=== PATIENT | male | born 1935 | race African-American/Black ===

== ENCOUNTER 2017-04-13 10:22 | Emergency (ER) | payer MEDICARE ==
[~2017-04-13] VITALS: Ht 180.3 cm; Wt 74.0 kg
[2017-04-13 10:25] VITALS: BP 136/87; PULSE 62; RESP 16; TEMP 97.8; O2SAT 98
[2017-04-13] MEDS ORDERED: SODIUM CHLOR 0.9% 1000 ML INJ 1,000 ML IV SCH (10:46)
[2017-04-13 10:49] VITALS: RESP 16; O2SAT 98
[2017-04-13 10:51] VITALS: BP 147/80; PULSE 59; RESP 16; O2SAT 98
--- NOTE | 2017-04-13 10:51 | PD ---
HPI Chief Complaint: Bleeding Time Seen by Provider: 10:35 Travel History International Travel<30 days: No Contact w/Intl Traveler<30days: No Traveled to known affect area: No History of Present Illness HPI The patient is a 81-year-old [place] male who presents emergency department for blood in his stool. The patient states he has had blood in his stool for approximately one month. He was evaluated in [place], and had an x-ray and blood work at that time, does not know the results. He then moved to local area 2 weeks ago and does not have a local primary physician. The blood in the stool is dark colored, occasionally in a stripe on the stool, and intermittent. He denies any current abdominal pain. He states he had a colonoscopy 3-4 years ago which was negative. He denies taking any blood thinners or anticoagulants. He denies any lightheadedness, dizziness, or shortness of breath with exertion. Symptoms are mild to moderate without any alleviating or exacerbating factors. He denies any pain with defecation. He does have a history of external hemorrhoids. [facility] Past Medical History Narrative Medical Hypertension Past Surgical History Narrative Surgical Left inguinal hernia repair Social History Alcohol Use: Yes (rarely) Tobacco Use: No (quit) Allergies-Medications (Allergen,Severity, Reaction): Coded Allergies: No Known Allergies (Unverified , 04/13/17) Reported Meds & Prescriptions Reported Meds & Active Scripts Active No Active Prescriptions or Reported Medications Review of Systems Except as stated in HPI: all other systems reviewed are Neg General / Constitutional: No: Fever HENT: No: Lightheadedness Cardiovascular: No: Chest Pain or Discomfort, Dyspnea on exertion Respiratory: No: Shortness of Breath Gastrointestinal: Positive: Hematochezia, No: Nausea, Vomiting, Abdominal Pain Musculoskeletal: No: Weakness Physical Exam Narrative GENERAL: Awake, alert, pleasant 81-year-old male who appears his stated age and is in no acute respiratory distress. SKIN: Focused skin assessment warm/dry. HEAD: Atraumatic. Normocephalic. EYES: No conjunctival pallor noted. ENT: No nasal bleeding or discharge. Mucous membranes pink and moist. NECK: Trachea midline. No JVD. CARDIOVASCULAR: Regular rate and rhythm. No murmur appreciated. RESPIRATORY: No accessory muscle use. Clear to auscultation. Breath sounds equal bilaterally. GASTROINTESTINAL: Abdomen soft, non-tender, nondistended. No rebound tenderness. Rectal: No gross blood. Guaiac negative. MUSCULOSKELETAL: No obvious deformities. No clubbing. No cyanosis. No edema. NEUROLOGICAL: Awake and alert. No obvious cranial nerve deficits. Motor grossly within normal limits. Normal speech. PSYCHIATRIC: Appropriate mood and affect; insight and judgment normal. Data Data Last Documented VS Vital Signs Date Time Temp Pulse Resp B/P (MAP) Pulse Ox O2 Delivery O2 Flow Rate FiO2 04/13/17 10:51 58 16 98 Room Air 04/13/17 10:51 147/80 (102) 04/13/17 10:25 97.8 Orders Orders Complete Blood Count With Diff (04/13/17 10:46) Comprehensive Metabolic Panel (04/13/17 10:46) Prothrombin Time / Inr (Pt) (04/13/17 10:46) Act Partial Throm Time (Ptt) (04/13/17 10:46) Ecg Monitoring (04/13/17 10:46) Iv Access Insert/Monitor (04/13/17 10:46) Oximetry (04/13/17 10:46) Sodium Chlor 0.9% 1000 Ml Inj (Ns 1000 M (04/13/17 10:46) Sodium Chloride 0.9% Flush (Ns Flush) (04/13/17 11:00) Famotidine Inj (Pepcid Inj) (04/13/17 11:00) Labs Laboratory Tests Test 04/13/17 10:55 White Blood Count 3.8 TH/MM3 Red Blood Count 4.72 MIL/MM3 Hemoglobin 13.6 GM/DL Hematocrit 41.0 % Mean Corpuscular Volume 86.8 FL Mean Corpuscular Hemoglobin 28.8 PG Mean Corpuscular Hemoglobin Concent 33.2 % Red Cell Distribution Width 15.4 % Platelet Count 265 TH/MM3 Mean Platelet Volume 7.7 FL Neutrophils (%) (Auto) 48.7 % Lymphocytes (%) (Auto) 38.0 % Monocytes (%) (Auto) 9.9 % Eosinophils (%) (Auto) 2.1 % Basophils (%) (Auto) 1.3 % Neutrophils # (Auto) 1.8 TH/MM3 Lymphocytes # (Auto) 1.4 TH/MM3 Monocytes # (Auto) 0.4 TH/MM3 Eosinophils # (Auto) 0.1 TH/MM3 Basophils # (Auto) 0.0 TH/MM3 CBC Comment DIFF FINAL Differential Comment Prothrombin Time 10.7 SEC Prothromb Time International Ratio 1.1 RATIO Activated Partial Thromboplast Time 24.0 SEC Blood Urea Nitrogen 8 MG/DL Creatinine 0.82 MG/DL Random Glucose 92 MG/DL Total Protein 7.1 GM/DL Albumin 3.4 GM/DL Calcium Level 9.5 MG/DL Alkaline Phosphatase 61 U/L Aspartate Amino Transf (AST/SGOT) 19 U/L Alanine Aminotransferase (ALT/SGPT) 22 U/L Total Bilirubin 0.3 MG/DL Sodium Level 138 MEQ/L Potassium Level 4.2 MEQ/L Chloride Level 107 MEQ/L Carbon Dioxide Level 27.4 MEQ/L Anion Gap 4 MEQ/L Estimat Glomerular Filtration Rate 109 ML/MIN [facility] Medical Decision Making Medical Screen Exam Complete: Yes Emergency Medical Condition: Yes Medical Record Reviewed: Yes Interpretation(s) Laboratory Tests Test 04/13/17 10:55 White Blood Count 3.8 TH/MM3 Red Blood Count 4.72 MIL/MM3 Hemoglobin 13.6 GM/DL Hematocrit 41.0 % Mean Corpuscular Volume 86.8 FL Mean Corpuscular Hemoglobin 28.8 PG Mean Corpuscular Hemoglobin Concent 33.2 % Red Cell Distribution Width 15.4 % Platelet Count 265 TH/MM3 Mean Platelet Volume 7.7 FL Neutrophils (%) (Auto) 48.7 % Lymphocytes (%) (Auto) 38.0 % Monocytes (%) (Auto) 9.9 % Eosinophils (%) (Auto) 2.1 % Basophils (%) (Auto) 1.3 % Neutrophils # (Auto) 1.8 TH/MM3 Lymphocytes # (Auto) 1.4 TH/MM3 Monocytes # (Auto) 0.4 TH/MM3 Eosinophils # (Auto) 0.1 TH/MM3 Basophils # (Auto) 0.0 TH/MM3 CBC Comment DIFF FINAL Differential Comment Prothrombin Time 10.7 SEC Prothromb Time International Ratio 1.1 RATIO Activated Partial Thromboplast Time 24.0 SEC Blood Urea Nitrogen 8 MG/DL Creatinine 0.82 MG/DL Random Glucose 92 MG/DL Total Protein 7.1 GM/DL Albumin 3.4 GM/DL Calcium Level 9.5 MG/DL Alkaline Phosphatase 61 U/L Aspartate Amino Transf (AST/SGOT) 19 U/L Alanine Aminotransferase (ALT/SGPT) 22 U/L Total Bilirubin 0.3 MG/DL Sodium Level 138 MEQ/L Potassium Level 4.2 MEQ/L Chloride Level 107 MEQ/L Carbon Dioxide Level 27.4 MEQ/L Anion Gap 4 MEQ/L Estimat Glomerular Filtration Rate 109 ML/MIN Differential Diagnosis Differential diagnosis includes upper GI bleed, lower GI bleed, internal hemorrhoids, anal fissure, diverticulosis, AV malformation, angiodysplasia, coagulopathy, anemia. Narrative Course IV was established, labs are drawn and sent, and the patient was placed on cardiac telemetry monitoring and continuous pulse oximetry monitoring. Rectal exam was performed, there is no gross blood. Guaiac negative. CBC was sent to lab. Hemoglobin is normal. BUN is normal, no azotemia. Patient's vitals are unremarkable. Patient is medically clear for outpatient follow-up. [facility] Point of Care Internal Pos. & Neg. Controls: Passed Fecal Specimen Occult Blood: Negative Diagnosis Primary Impression: Hematochezia Patient Instructions: General Instructions Additional Instructions: Please provide a patient a copy of his labs at discharge. Follow-up with a primary physician. Return if symptoms worsen or progress. Med/Other Pt SpecificInfo: No Change to Meds Scripts No Active Prescriptions or Reported Meds Disposition: 01 DISCHARGE HOME Condition: Stable Lionel Loredo MD Apr 13, 2017 10:51
[2017-04-13] MEDS ORDERED: FAMOTIDINE 20 MG/2 ML VIAL IV PUSH ONE (11:00)
[2017-04-13] MEDS ORDERED: SODIUM CHLORIDE 0.9% FLUSH 10 ML FLUSH IVF PRN (11:00)
[2017-04-13 11:13] LABS: AUTOMATED NEUTROPHIL # 1.8 TH/MM3 (1.8-7.7); BASOPHIL % 1.3 % (0.0-2.0); EOSINOPHIL # 0.1 TH/MM3 (0-0.4); EOSINOPHIL % 2.1 % (0.0-4.0); HEMOGLOBIN 13.6 GM/DL (13.0-17.0); LYMPHOCYTE # 1.4 TH/MM3 (1.0-4.8); MEAN CELL VOLUME 86.8 FL (80.0-100.0); MEAN CORPUSCULAR HEMOGLOBIN 28.8 PG (27.0-34.0); MEAN CORPUSCULAR HGB CONC 33.2 % (32.0-36.0); MEAN PLATELET VOLUME 7.7 FL (7.0-11.0); MONO % 9.9 % (0.0-8.0); MONOCYTE # 0.4 TH/MM3 (0-0.9); NEUT % 48.7 % (16.0-70.0); PLATELET COUNT 265 TH/MM3 (150-450); RED BLOOD COUNT 4.72 MIL/MM3 (4.50-5.90); RED CELL DISTRIBUTION WIDTH 15.4 % (11.6-17.2); WHITE BLOOD COUNT 3.8 TH/MM3 (4.0-11.0)
[2017-04-13 11:16] LABS: INTERNATIONAL NORMALIZED RATIO 1.1 RATIO; PROTHROMBIN TIME - PATIENT 10.7 SEC (9.8-11.6)
[2017-04-13 11:29] LABS: ALKALINE PHOSPHATASE 61 U/L (45-117); TOTAL BILIRUBIN ADULT 0.3 MG/DL (0.2-1.0); TOTAL PROTEIN 7.1 GM/DL (6.4-8.2)
[2017-04-13 11:33] LABS: ALBUMIN 3.4 GM/DL (3.4-5.0); ALT (GPT) 22 U/L (12-78); AST (GOT) 19 U/L (15-37); BICARBONATE 27.4 MEQ/L (21.0-32.0); BLOOD UREA NITROGEN 8 MG/DL (7-18); CALCIUM 9.5 MG/DL (8.5-10.1); CHLORIDE 107 MEQ/L (98-107); CREATININE 0.82 MG/DL (0.60-1.30); GLOMERULAR FILTRATION RATE 109 ML/MIN (>89); GLUCOSE,RANDOM 92 MG/DL (74-106); SODIUM (NA) 138 MEQ/L (136-145)
== END 2017-04-13 11:59 | disposition home or self-care (01) ==
LOC: NEPC 10:22
DX: K92.1 Melena (principal); I10 Essential (primary) hypertension
CPT/HCPCS: 80053; 85025; 85610; 85730; 96361; 96374; 99284; J7030